=== PATIENT | female | born 1975 | race Caucasian/White ===

== ENCOUNTER 2021-12-06 12:21 | Inpatient (IN) | payer OTHER ==
[~2021-12-06] VITALS: Ht 162.6 cm; Wt 82.2 kg
[~2021-12-06 12:21] MED LIST: BACTRIM DS TAB1 EACH PO; CLEOCIN300 MG PO; GLUCOPHAGE500 MG PO; HUMULIN R100 UNIT/2 SC; LANTUS **100 UNITS/ SC; ZOFRAN4 MG PO
[2021-12-06 15:34] LABS: BASOPHIL 0.6 % (0-2); EOSINOPHIL 2.2 % (0-5); HCT 41.9 % (37.0-47.0); HGB 13.8 g/dl (12.5-16.0); LYMPHOCYTE 28.9 % (15-48); MCH 28.9 pg (25.0-31.0); MCHC 32.9 g/dL (32.0-36.0); MCV 87.7 fL (78.0-100.0); MONOCYTE 5.6 % (0-12); MPV 9.9 fL (6.0-9.5); NEUTROPHIL 62.1 % (41-80); NRBC 0; PLT 464 K/uL (150-400); RBC 4.78 M/uL (4.20-5.40); RDW 13.7 % (11.5-14.0)
[2021-12-06 16:48] LABS: ALBUMIN 3.7 g/dL (3.4-5.0); BILIRUBIN - TOTAL 0.2 mg/dL (0.2-1.0); BUN/CREAT RATIO (CALC) 27.3 RATIO; CREATININE 0.55 mg/dL (0.51-0.95); GLOBULIN (CALCULATION) 4.1 g/dL; POTASSIUM 3.9 mmol/L (3.5-5.1); TOTAL PROTEIN 7.8 g/dL (6.4-8.2)
[2021-12-06 16:48] LABS: BILIRUBIN NEGATIVE (NEGATIVE); BLOOD NEGATIVE Ery/uL (NEGATIVE); CLARITY CLEAR (CLEAR); COLOR YELLOW (YELLOW); GLUCOSE (U) 3+ mg/dL (NORMAL); LEUKOCYTES NEGATIVE Leu/uL (NEGATIVE); NITRITE NEGATIVE (NEGATIVE); PROTEIN NEGATIVE (NEGATIVE); SPECIFIC GRAVITY 1.025 (1.001-1.030); UROBILINOGEN 0.2 mg/dL (0.2-1.0); pH 5.5 (5.0-9.0)
[2021-12-06 17:01] LABS: LACTIC ACID 3.7 mmol/L (0.4-1.9)
[2021-12-06] MEDS ORDERED: METFORMIN HCL500 MG PO (22:29)
[2021-12-06] MEDS ORDERED: TRULICITY0.75 MG/0. SC (22:31)
[2021-12-06] MEDS ORDERED: COZAAR100 MG PO (22:31)
[2021-12-06] MEDS ORDERED: BLACK ELDERBER1 EACH PO (22:32)
[2021-12-06] MEDS ORDERED: KEFLEX250 MG PO (22:33)
[2021-12-07 05:23] LABS: CORONAVIRUS 2019 SARS-COV-2 NEGATIVE (NEGATIVE); INFLUENZA A NAA NEGATIVE (NEGATIVE)
[2021-12-07 07:01] LABS: BASOPHIL 0.5 % (0-2); EOSINOPHIL 2.4 % (0-5); HCT 36.6 % (37.0-47.0); HGB 12.1 g/dl (12.5-16.0); LYMPHOCYTE 31.4 % (15-48); MCH 28.7 pg (25.0-31.0); MCHC 33.1 g/dL (32.0-36.0); MCV 86.7 fL (78.0-100.0); MONOCYTE 5.9 % (0-12); MPV 10.6 fL (6.0-9.5); NEUTROPHIL 59.4 % (41-80); NRBC 0; PLT 370 K/uL (150-400); RBC 4.22 M/uL (4.20-5.40); RDW 13.5 % (11.5-14.0); WBC 12.3 K/uL (4.0-10.5)
[2021-12-07 07:14] LABS: BUN/CREAT RATIO (CALC) 26.7 RATIO; CREATININE 0.45 mg/dL (0.51-0.95); POTASSIUM 3.9 mmol/L (3.5-5.1)
[2021-12-07 14:55] LABS: HCG (URINE) SCREEN NEGATIVE (NEGATIVE)
[2021-12-08 07:07] LABS: HCT 34.7 % (37.0-47.0); HGB 11.5 g/dl (12.5-16.0); MCH 29.2 pg (25.0-31.0); MCHC 33.1 g/dL (32.0-36.0); MCV 88.1 fL (78.0-100.0); MPV 10.3 fL (6.0-9.5); RBC 3.94 M/uL (4.20-5.40); RDW 13.6 % (11.5-14.0); WBC 14.4 K/uL (4.0-10.5)
[2021-12-08 07:38] LABS: BUN/CREAT RATIO (CALC) 22.2 RATIO; CREATININE 0.63 mg/dL (0.51-0.95); POTASSIUM 4.8 mmol/L (3.5-5.1)
[2021-12-08] MEDS ORDERED: METFORMIN HCL500 MG PO (15:10)
[2021-12-08] MEDS ORDERED: AUGMENTIN 875-1 EACH PO (15:14)
== END 2021-12-08 16:25 | disposition home or self-care (01) | DRG 572 ==
LOC: FER 12:21 → FMS 19:20
PROVIDERS: Emergency Medicine; Nurse Practitioner Acute Care; Nurse Practitioner Family; Surgery; ADMIT Internal Medicine
PROC: 0HBT0ZX Excision of Right Breast, Open Approach, Diagnostic (ICD-10-PCS; 2021-12-07)
PROC: 0JB60ZZ Excision of Chest Subcutaneous Tissue and Fascia, Open Approach (ICD-10-PCS; principal; 2021-12-07 12:15)
DX: N61.1 Abscess of the breast and nipple (principal); E11.65 Type 2 diabetes mellitus with hyperglycemia; N64.1 Fat necrosis of breast; Z20.822 Contact with and (suspected) exposure to COVID-19; I10 Essential (primary) hypertension; I16.0 Hypertensive urgency; E11.40 Type 2 diabetes mellitus with diabetic neuropathy, unspecified; L30.4 Erythema intertrigo; E66.9 Obesity, unspecified; Z79.84 Long term (current) use of oral hypoglycemic drugs; R63.4 Abnormal weight loss; Z79.899 Other long term (current) drug therapy; Z88.0 Allergy status to penicillin; Z88.8 Allergy status to other drugs, medicaments and biological substances; Z86.16 Personal history of COVID-19; Z68.31 Body mass index [BMI] 31.0-31.9, adult
CPT/HCPCS: 36415; 76642-RT; 80048; 80053; 80202; 81003; 82962; 83036; 83605; 84145; 84703; 85025; 87040; 87070; 87075; 87077; 87186; 87205; J0360; J2001; J2250; J2370; J2405; J2704; J3010; J3370; J7030; J7050; J7120; U0002